=== PATIENT | male | born 1985 | race Caucasian/White ===

== ENCOUNTER 2017-08-18 11:20 | Emergency (ER) | payer OTHER ==
[~2017-08-18] VITALS: Ht 180.3 cm; Wt 72.6 kg
[2017-08-18 11:30] VITALS: BP 126/89
== END 2017-08-18 13:58 | disposition home or self-care (01) ==
LOC: ER 11:20 → EDBD 11:20 → ER 13:58
DX: S01.01XA Laceration without foreign body of scalp, initial encounter (principal); S05.12XA Contusion of eyeball and orbital tissues, left eye, initial encounter; S00.81XA Abrasion of other part of head, initial encounter; Y08.89XA Assault by other specified means, initial encounter; Y93.89 Activity, other specified; Y92.89 Other specified places as the place of occurrence of the external cause; Y99.8 Other external cause status
CPT/HCPCS: 70450